=== PATIENT | male | born 1955 | race Caucasian/White ===

== ENCOUNTER 2024-03-02 09:46 | Outpatient (CLI) | payer MEDICARE, OTHER ==
--- NOTE | 2024-03-02 11:47 | XRAY Report ---
PROCEDURE: Chest 3V INDICATIONS: SMOKER TECHNIQUE: 2 views of the chest were obtained. COMPARISON: None. FINDINGS: Surgical changes and devices: None. Lungs and pleura: No pleural effusions or pneumothorax. Lungs are clear. Mediastinum: Mediastinal contours appear normal. Heart size is normal. Bones and chest wall: No suspicious bony lesions. Overlying soft tissues appear unremarkable. IMPRESSION: Normal two-view chest x-ray Reviewed by: Emanuel Ferrell MD on 03/02/2024 10:46 AM ROSALIA Approved by: Emanuel Ferrell MD on 03/02/2024 10:46 AM [email or web address] Station ID: [id number]
== END 2024-03-02 09:47 | disposition home or self-care (01) ==
LOC: DI.S 09:46
PROVIDERS: ATTEND Nurse Practitioner Family
DX: F17.200 Nicotine dependence, unspecified, uncomplicated (principal)